=== PATIENT | male | born 1990 | race Caucasian/White ===

== ENCOUNTER 2016-09-24 21:19 | Emergency (ER) | payer BC ==
[2016-09-24 21:29] VITALS: RESP 18
[2016-09-24 22:00] LABS: Basophils # (A) 0.1 k/uL (0-0.2); Basophils % (A) 1 %; CH 30.8; CHCM 34.9; Eosinophils # (A) 0.1 k/uL (0-0.7); Eosinophils % (A) 2 %; HCT 47.9 % (39.0-53.0); HDW 2.52; HGB 16.3 gm/dL (13.0-17.5); Luc # (Auto) 0.09; Luc % (Auto) 1; Lymphocytes # (A) 1.6 k/uL (1.0-4.8); Lymphocytes % (A) 25 %; MCH 30.2 pg (25.0-35.0); MCHC 34.1 g/dL (31.0-37.0); MCV 88.4 fL (80.0-100.0); Mean Platelet Volume 7.6; Monocytes # (A) 0.3 k/uL (0-1.0); Monocytes % (A) 5 %; Neutrophils # (A) 4.3 k/uL (1.3-7.7); Neutrophils % (A) 66 %; RBC 5.42 m/uL (4.30-5.90); WBC 6.5 k/uL (3.8-10.6); WBC (Perox) 6.61
--- NOTE | 2016-09-24 22:02 | XR ---
EXAMINATION TYPE: XR chest 2V DATE OF EXAM: 09/24/2016 9:59 PM COMPARISON: NONE HISTORY: Chest pain TECHNIQUE: Frontal and lateral views of the chest are obtained. FINDINGS: Heart and mediastinum are normal. Lungs are clear. Diaphragm is normal. Bony thorax and so ft tissues appear normal. IMPRESSION: Normal chest
--- NOTE | 2016-09-24 22:03 | XR ---
EXAMINATION TYPE: XR KUB DATE OF EXAM: 09/24/2016 10:00 PM COMPARISON: NONE HISTORY: Left-sided chest pain and abdominal pain TECHNIQUE: 2 views FINDINGS: Bowel gas pattern is normal. There is no sign of intestinal obstruction or pneumoperitoneum . Fecal pattern is normal. Lung bases are clear. There are no pathologic calcifications over the kidn eys. IMPRESSION: Nonacute abdomen.
[2016-09-24 22:11] LABS: ALT 39 U/L (21-72); AST 25 U/L (17-59); Alkaline Phosphatase 91 U/L (38-126); Amylase 88 U/L (30-110); Anion Gap 11 mmol/L; Blood Urea Nitrogen 9 mg/dL (9-20); Calcium 9.6 mg/dL (8.4-10.2); Carbon Dioxide 24 mmol/L (22-30); Chloride 104 mmol/L (98-107); Glucose 112 mg/dL (74-99); Non-African American GFR(MDRD) >60 (>60 ml/min/1.73 sqM); Potassium 4.3 mmol/L (3.5-5.1); Sodium 139 mmol/L (137-145); Total Bilirubin 0.8 mg/dL (0.2-1.3); Total Protein 7.2 g/dL (6.3-8.2)
--- NOTE | 2016-09-24 22:26 | ED ---
Abdominal Pain HPI - General Chief Complaint: Abdominal Pain Stated Complaint: rib pain Time Seen by Provider: 09/24/16 21:30 Source: patient, RN notes reviewed Mode of arrival: ambulatory Limitations: no limitations - History of Present Illness Initial Comments: 26-year-old male presents emergency Department chief complaint left-sided chest , abdominal pain. Patient states that it started when he woke this morning. Patient states nothing makes it feel better or worse. Patient denies nausea, vomiting, diarrhea constipation. Patient denies any chest pain or shortness of breath. Patient states she had no trauma denies any rashes area. Patient has not taken any Tylenol Motrin today. - Related Data Home Medications Medication Instructions Recorded Confirmed Buspar(Unknown) 1 tab PO QAM 09/24/16 09/24/16 Lamictal(Unknown) 1 tab PO QAM 09/24/16 09/24/16 Prozac(Unknown) 1 cap PO QAM 09/24/16 09/24/16 Allergies Allergy/AdvReac Type Severity Reaction Status Date / Time Penicillins Allergy Rash/Hives Verified 09/24/16 21:35 Review of Systems ROS Statement: Those systems with pertinent positive or pertinent negative responses have been documented in the HPI. ROS Other: All systems not noted in ROS Statement are negative. Past Medical History Past Medical History: No Reported History History of Any Multi-Drug Resistant Organisms: None Reported Additional Past Surgical History / Comment(s): right acl, right knee arthroscopy , right meniscus tear, right knee I&D Past Psychological History: Depression Smoking Status: Never smoker Past Alcohol Use History: Occasional Past Drug Use History: None Reported General Exam Limitations: no limitations General appearance: alert, in no apparent distress Head exam: Present: atraumatic, normocephalic, normal inspection ENT exam: Present: normal exam, normal oropharynx, mucous membranes moist Neck exam: Present: normal inspection, full ROM. Absent: tenderness, meningismus, lymphadenopathy Respiratory exam: Present: normal lung sounds bilaterally, chest wall tenderness (Minimal tenderness left lower ribs). Absent: respiratory distress, wheezes, rales, rhonchi, stridor Cardiovascular Exam: Present: regular rate, normal rhythm, normal heart sounds. Absent: systolic murmur, diastolic murmur, rubs, gallop, clicks GI/Abdominal exam: Present: soft, normal bowel sounds, other (No splenomegaly appreciated). Absent: distended, tenderness, guarding, rebound, rigid Back exam: Absent: CVA tenderness (R), CVA tenderness (L) Neurological exam: Present: alert, oriented X3, CN II-XII intact Skin exam: Present: warm, dry, intact, normal color. Absent: rash Course Vital Signs 09/24/16 21:27 Temperature 98.1 F Pulse Rate 70 Respiratory 18 Rate Blood Pressure 137/63 O2 Sat by Pulse 98 Oximetry Medical Decision Making - Medical Decision Making 26-year-old male present emergency department for left rib/abdominal pain. Patient had no trauma rashes. Patient lab work, x-rays within normal limits. Pain is reproducible in between the past. This may be consistent with costochondritis. Patient will follow-up with primary care physician. We discussed taking ibuprofen for the pain - Lab Data Result diagrams: 09/24/16 21:55 09/24/16 21:55 Lab Results 09/24/16 09/24/16 09/24/16 Range/Units 21:55 21:55 21:55 WBC 6.5 (3.8-10.6) k/uL RBC 5.42 (4.30-5.90) m/uL Hgb 16.3 (13.0-17.5) gm/dL Hct 47.9 (39.0-53.0) % MCV 88.4 (80.0-100.0) fL MCH 30.2 (25.0-35.0) pg MCHC 34.1 (31.0-37.0) g/dL RDW 13.0 (11.5-15.5) % Plt Count 231 (150-450) k/uL Neutrophils % 66 % Lymphocytes % 25 % Monocytes % 5 % Eosinophils % 2 % Basophils % 1 % Neutrophils # 4.3 (1.3-7.7) k/uL Lymphocytes # 1.6 (1.0-4.8) k/uL Monocytes # 0.3 (0-1.0) k/uL Eosinophils # 0.1 (0-0.7) k/uL Basophils # 0.1 (0-0.2) k/uL Sodium 139 (137-145) mmol/L Potassium 4.3 (3.5-5.1) mmol/L Chloride 104 (98-107) mmol/L Carbon Dioxide 24 (22-30) mmol/L Anion Gap 11 mmol/L BUN 9 (9-20) mg/dL Creatinine 1.00 (0.66-1.25) mg/dL Est GFR (MDRD) Af Amer >60 (>60 ml/min/1.73 sqM) Est GFR (MDRD) Non-Af >60 (>60 ml/min/1.73 sqM) Glucose 112 H (74-99) mg/dL Calcium 9.6 (8.4-10.2) mg/dL Total Bilirubin 0.8 (0.2-1.3) mg/dL AST 25 (17-59) U/L ALT 39 (21-72) U/L Alkaline Phosphatase 91 (38-126) U/L Total Protein 7.2 (6.3-8.2) g/dL Albumin 4.4 (3.5-5.0) g/dL Amylase 88 (30-110) U/L Lipase 84 (23-300) U/L Urine Color Urine Appearance (Clear) Urine pH (5.0-8.0) Ur Specific [place] (1.001-1.035) Urine Protein (Negative) Urine Glucose (UA) (Negative) Urine Ketones (Negative) Urine Blood (Negative) Urine Nitrate (Negative) Urine Bilirubin (Negative) Urine Urobilinogen (<2.0) mg/dL Ur Leukocyte Esterase (Negative) Urine RBC (0-5) /hpf Urine WBC (0-5) /hpf Urine Mucus (None) /hpf Heterophile Antibody Negative (Negative) 09/24/16 Range/Units 22:25 WBC (3.8-10.6) k/uL RBC (4.30-5.90) m/uL Hgb (13.0-17.5) gm/dL Hct (39.0-53.0) % MCV (80.0-100.0) fL MCH (25.0-35.0) pg MCHC (31.0-37.0) g/dL RDW (11.5-15.5) % Plt Count (150-450) k/uL Neutrophils % % Lymphocytes % % Monocytes % % Eosinophils % % Basophils % % Neutrophils # (1.3-7.7) k/uL Lymphocytes # (1.0-4.8) k/uL Monocytes # (0-1.0) k/uL Eosinophils # (0-0.7) k/uL Basophils # (0-0.2) k/uL Sodium (137-145) mmol/L Potassium (3.5-5.1) mmol/L Chloride (98-107) mmol/L Carbon Dioxide (22-30) mmol/L Anion Gap mmol/L BUN (9-20) mg/dL Creatinine (0.66-1.25) mg/dL Est GFR (MDRD) Af Amer (>60 ml/min/1.73 sqM) Est GFR (MDRD) Non-Af (>60 ml/min/1.73 sqM) Glucose (74-99) mg/dL Calcium (8.4-10.2) mg/dL Total Bilirubin (0.2-1.3) mg/dL AST (17-59) U/L ALT (21-72) U/L Alkaline Phosphatase (38-126) U/L Total Protein (6.3-8.2) g/dL Albumin (3.5-5.0) g/dL Amylase (30-110) U/L Lipase (23-300) U/L Urine Color Yellow Urine Appearance Clear (Clear) Urine pH 6.5 (5.0-8.0) Ur Specific [place] 1.011 (1.001-1.035) Urine Protein Negative (Negative) Urine Glucose (UA) Negative (Negative) Urine Ketones Negative (Negative) Urine Blood Negative (Negative) Urine Nitrate Negative (Negative) Urine Bilirubin Negative (Negative) Urine Urobilinogen 2.0 (<2.0) mg/dL Ur Leukocyte Esterase Trace H (Negative) Urine RBC <1 (0-5) /hpf Urine WBC 1 (0-5) /hpf Urine Mucus Rare H (None) /hpf Heterophile Antibody (Negative) Disposition Clinical Impression: Acute costochondritis Disposition: HOME SELF-CARE Condition: Stable Instructions: Costochondritis (ED) Additional Instructions: Please return to the Emergency Department if symptoms worsen or any other concerns. Time of Disposition: 23:06
[2016-09-24 23:01] LABS: Appearance,Urine Clear (Clear); Bilirubin,Urine Negative (Negative); Glucose,Urine (UA) Negative (Negative); Ketones,Urine Negative (Negative); Leukocyte Esterase,Urine Trace (Negative); Mucus,Urine Rare /hpf; Nitrite,Urine Negative (Negative); PH, Urine 6.5 (5.0-8.0); Particle Count 1971; Protein,Urine Negative (Negative); RBC,Urine <1 /hpf (0-5); Specific Gravity,Urine 1.011 (1.001-1.035); UA Billing (MACRO vs. MICRO) MICRO; WBC,Urine 1 /hpf (0-5)
[2016-09-24 23:15] VITALS: BP 136/70; PULSE 91; TEMP 98.6
== END 2016-09-24 23:15 | disposition home or self-care (01) ==
LOC: EC 21:19
DX: M94.0 Chondrocostal junction syndrome [Tietze] (principal); F32.9 Major depressive disorder, single episode, unspecified; Z79.899 Other long term (current) drug therapy; Z88.0 Allergy status to penicillin
CPT/HCPCS: 36415; 71020; 74000; 80053; 81001; 82150; 83690; 85025; 86308; 99284

== ENCOUNTER 2016-10-01 01:24 | Emergency (ER) | payer BC ==
[2016-10-01 01:30] VITALS: TEMP 98.1
[2016-10-01] MEDS ORDERED: KETOROLAC 30 MG/ML 1 ML VIAL IVP STA (02:02)
[2016-10-01] MEDS ORDERED: MORPHINE SULFATE 2 MG/ML SYRINGE IVP ONE (02:08)
[2016-10-01] MEDS ORDERED: SODIUM CHLORIDE 0.9% 1,000 ML IV ONE (02:08)
[2016-10-01 02:12] LABS: Basophils # (A) 0.1 k/uL (0-0.2); Basophils % (A) 0 %; CH 30.8; CHCM 35.2; Eosinophils % (A) 0 %; HCT 47.4 % (39.0-53.0); HDW 2.49; HGB 15.8 gm/dL (13.0-17.5); Luc # (Auto) 0.04; Luc % (Auto) 0; Lymphocytes % (A) 6 %; MCH 29.3 pg (25.0-35.0); MCHC 33.3 g/dL (31.0-37.0); MCV 87.9 fL (80.0-100.0); Mean Platelet Volume 7.9; Monocytes # (A) 0.3 k/uL (0-1.0); Monocytes % (A) 2 %; Neutrophils # (A) 13.5 k/uL (1.3-7.7); Neutrophils % (A) 91 %; RBC 5.39 m/uL (4.30-5.90); WBC 14.8 k/uL (3.8-10.6); WBC (Perox) 15.46
[2016-10-01 02:20] LABS: ALT 32 U/L (21-72); AST 26 U/L (17-59); Alkaline Phosphatase 105 U/L (38-126); Amylase 83 U/L (30-110); Anion Gap 17 mmol/L; Blood Urea Nitrogen 10 mg/dL (9-20); Carbon Dioxide 22 mmol/L (22-30); Chloride 105 mmol/L (98-107); Glucose 126 mg/dL (74-99); Non-African American GFR(MDRD) >60 (>60 ml/min/1.73 sqM); Potassium 4.3 mmol/L (3.5-5.1); Sodium 144 mmol/L (137-145); Total Bilirubin 0.4 mg/dL (0.2-1.3); Total Protein 7.4 g/dL (6.3-8.2)
--- NOTE | 2016-10-01 02:22 | XR ---
EXAMINATION TYPE: XR KUB DATE OF EXAM: 10/01/2016 2:16 AM COMPARISON: To 117 HISTORY: Nausea and vomiting TECHNIQUE: 2 views FINDINGS: Bowel gas pattern is normal. There is no sign of intestinal obstruction or pneumoperitoneum . Fecal pattern is normal. Lung bases are clear. There are no pathologic calcifications. Bony structu res appear intact. IMPRESSION: Nonacute abdomen. No change.
[2016-10-01] MEDS ORDERED: MORPHINE SULFATE 4 MG/ML SYRINGE IVP STA (03:12)
[2016-10-01] MEDS ORDERED: PANTOPRAZOLE 40 MG/10 ML VIAL IVP STA (03:22)
[2016-10-01] MEDS ORDERED: METOCLOPRAMIDE 5 MG/ML 2 ML VIAL IVP STA (03:23)
[2016-10-01 03:32] LABS: Appearance,Urine Clear (Clear); Bacteria,Urine Occasional /hpf; Bilirubin,Urine Negative (Negative); Glucose,Urine (UA) Negative (Negative); Ketones,Urine 1+ (Negative); Leukocyte Esterase,Urine Large (Negative); Mucus,Urine Rare /hpf; Nitrite,Urine Negative (Negative); Particle Count 2627; Protein,Urine 1+ (Negative); RBC,Urine 1 /hpf (0-5); Specific Gravity,Urine 1.026 (1.001-1.035); Squamous Epithelial Cell,Urine <1 /hpf (0-4); UA Billing (MACRO vs. MICRO) MICRO; Urobilinogen,Urine <2.0 mg/dL (<2.0); WBC,Urine 4 /hpf (0-5)
[2016-10-01] MEDS ORDERED: RX INFO: IV CONTRAST WAS GIVEN 1 EACH MISC MISCELLANE PRN (03:32)
--- NOTE | 2016-10-01 03:33 | ED ---
Nausea/Vomiting/Diarrhea HPI - General Chief complaint: Nausea/Vomiting/Diarrhea Stated complaint: Vomiting Blood Time Seen by Provider: 10/01/16 02:02 Source: patient, RN notes reviewed Mode of arrival: ambulatory Limitations: no limitations - History of Present Illness Initial comments: Patient is a 26 year old male with chief complaint of vomiting for 2 hours, and patient states he has been vomiting blood. Patient states this has never happened before, denies history of reflx disease. Patient reports that he has epigastric abdominal pain. Patient reports it is dark brown blood. Patient states has no other symptoms including diarrhea, blood stools, or fever or chills. Patient denies cough and rib pain. - Related Data Home Medications Medication Instructions Recorded Confirmed Buspar(Unknown) 1 tab PO QAM 09/24/16 09/24/16 Lamictal(Unknown) 1 tab PO QAM 09/24/16 09/24/16 Prozac(Unknown) 1 cap PO QAM 09/24/16 09/24/16 Previous Rx's Medication Instructions Recorded Omeprazole 40 mg PO DAILY #20 capsule. 10/01/16 Ondansetron Odt [Zofran Odt] 4 mg PO Q8HR PRN #12 tab 10/01/16 Allergies Allergy/AdvReac Type Severity Reaction Status Date / Time Penicillins Allergy Rash/Hives Verified 10/01/16 01:30 Review of Systems ROS Statement: Those systems with pertinent positive or pertinent negative responses have been documented in the HPI. ROS Other: All systems not noted in ROS Statement are negative. Past Medical History Past Medical History: No Reported History History of Any Multi-Drug Resistant Organisms: None Reported Additional Past Surgical History / Comment(s): right acl, right knee arthroscopy , right meniscus tear, right knee I&D Past Psychological History: Anxiety, Depression Smoking Status: Never smoker Past Alcohol Use History: Occasional Past Drug Use History: None Reported General Exam - General Exam Comments Initial Comments: Well appearing 26 year old male, no acute distress. Limitations: no limitations General appearance: alert, in no apparent distress Head exam: Present: atraumatic, normocephalic, normal inspection Eye exam: Present: normal appearance, PERRL, EOMI. Absent: scleral icterus, conjunctival injection, periorbital swelling ENT exam: Present: normal exam, mucous membranes moist Neck exam: Present: normal inspection. Absent: tenderness, meningismus, lymphadenopathy Respiratory exam: Present: normal lung sounds bilaterally. Absent: respiratory distress, wheezes, rales, rhonchi, stridor Cardiovascular Exam: Present: regular rate, normal rhythm, normal heart sounds. Absent: systolic murmur, diastolic murmur, rubs, gallop, clicks GI/Abdominal exam: Present: soft, tenderness (epigastric tenderness), normal bowel sounds. Absent: distended, guarding, rebound, rigid Extremities exam: Present: normal inspection, full ROM, normal capillary refill. Absent: tenderness, pedal edema, joint swelling, calf tenderness Back exam: Present: normal inspection Neurological exam: Present: alert, oriented X3, CN II-XII intact Psychiatric exam: Present: normal affect, normal mood Skin exam: Present: warm, dry, intact, normal color. Absent: rash Course Vital Signs 10/01/16 10/01/16 10/01/16 01:28 02:30 04:36 Temperature 98.1 F Pulse Rate 89 79 77 Respiratory 18 16 16 Rate Blood Pressure 129/76 138/69 141/62 O2 Sat by Pulse 98 97 98 Oximetry Medical Decision Making - Medical Decision Making Patientis a 26 year old with 2 hours of bloody emesis. Emesis is dark coffee ground like. Patient reports this has never happened before. Patient has leukocytosis and continue dnausea despite inital dose of zofran. Patient given IV protonix, morphine, and reglan and zofran. Patient reports pain is diminshed. Ct is negative for any acute process. Patient will discharged with Omeprazole and advised to follow up with GI specialist. REturn parameters discussed. Patient also given Rx for nausea medicaiotn and note for work. - Lab Data Result diagrams: 10/01/16 01:40 10/01/16 01:40 Lab Results 10/01/16 10/01/16 10/01/16 Range/Units 01:40 01:40 03:20 WBC 14.8 H (3.8-10.6) k/uL RBC 5.39 (4.30-5.90) m/uL Hgb 15.8 (13.0-17.5) gm/dL Hct 47.4 (39.0-53.0) % MCV 87.9 (80.0-100.0) fL MCH 29.3 (25.0-35.0) pg MCHC 33.3 (31.0-37.0) g/dL RDW 13.0 (11.5-15.5) % Plt Count 256 (150-450) k/uL Neutrophils % 91 % Lymphocytes % 6 % Monocytes % 2 % Eosinophils % 0 % Basophils % 0 % Neutrophils # 13.5 H (1.3-7.7) k/uL Lymphocytes # 1.0 (1.0-4.8) k/uL Monocytes # 0.3 (0-1.0) k/uL Eosinophils # 0.0 (0-0.7) k/uL Basophils # 0.1 (0-0.2) k/uL Sodium 144 (137-145) mmol/L Potassium 4.3 (3.5-5.1) mmol/L Chloride 105 (98-107) mmol/L Carbon Dioxide 22 (22-30) mmol/L Anion Gap 17 mmol/L BUN 10 (9-20) mg/dL Creatinine 1.00 (0.66-1.25) mg/dL Est GFR (MDRD) Af Amer >60 (>60 ml/min/1.73 sqM) Est GFR (MDRD) Non-Af >60 (>60 ml/min/1.73 sqM) Glucose 126 H (74-99) mg/dL Calcium 10.0 (8.4-10.2) mg/dL Total Bilirubin 0.4 (0.2-1.3) mg/dL AST 26 (17-59) U/L ALT 32 (21-72) U/L Alkaline Phosphatase 105 (38-126) U/L Total Protein 7.4 (6.3-8.2) g/dL Albumin 4.6 (3.5-5.0) g/dL Amylase 83 (30-110) U/L Lipase 70 (23-300) U/L Urine Color Yellow Urine Appearance Clear (Clear) Urine pH 8.0 (5.0-8.0) Ur Specific [place] 1.026 (1.001-1.035) Urine Protein 1+ H (Negative) Urine Glucose (UA) Negative (Negative) Urine Ketones 1+ H (Negative) Urine Blood Negative (Negative) Urine Nitrate Negative (Negative) Urine Bilirubin Negative (Negative) Urine Urobilinogen <2.0 (<2.0) mg/dL Ur Leukocyte Esterase Large H (Negative) Urine RBC 1 (0-5) /hpf Urine WBC 4 (0-5) /hpf Ur Squamous Epith Cells <1 (0-4) /hpf Urine Bacteria Occasional H (None) /hpf Urine Mucus Rare H (None) /hpf - Radiology Data Radiology results: report reviewed Negative CT abdomen and pelvis. Disposition Clinical Impression: Bloody emesis, Vomiting Disposition: HOME SELF-CARE Condition: Good Instructions: Acute Nausea and Vomiting (ED) Additional Instructions: Patient advised to follow-up with GI specialist in 2 days. Continue nausea medication and take omeprazole once a day for the next month. Return to the [facility] if any alarming signs or symptoms occur. Follow-up with primary care provider within the next week. Prescriptions: Omeprazole 40 mg PO DAILY #20 capsule. Ondansetron Odt [Zofran Odt] 4 mg PO Q8HR PRN #12 tab PRN Reason: Nausea Referrals: Tanner Snider MD [Primary Care Provider] - 1-2 days Sadiq Gaffney MD [STAFF PHYSICIAN] - 1-2 days Time of Disposition: 04:36
[2016-10-01 04:36] VITALS: RESP 16
[2016-10-01 04:37] VITALS: BP 141/62; PULSE 77
--- NOTE | 2016-10-01 04:56 | CT ---
EXAMINATION TYPE: CT abdomen pelvis w con DATE OF EXAM: 10/01/2016 4:07 AM COMPARISON: NONE HISTORY: N/V/D CT DLP: 1437 mGycm Automated exposure control for dose reduction was used. TECHNIQUE: Helical acquisition of images was performed from the lung bases through the pelvis. CONTRAST: Performed without Oral Contrast and with IV Contrast, patient injected with 100 mL of Omnipaque 300. FINDINGS: Lung bases are clear. There is no pleural effusion. Heart size is normal. Liver spleen pancreas gallbladder appear normal. Bile ducts are nondilated. There is no adrenal mass. Kidneys show satisfactory contrast opacification. There is no hydronephrosis. There is no retroperit carter adenopathy. There is no ascites. I see no intestinal wall thickening. There are no dilated loop s. Bladder distends smoothly. There is no sign of a pelvic mass. Appendix is not seen. There is no si gn of appendicitis. IMPRESSION: NEGATIVE CT SCAN OF THE ABDOMEN AND PELVIS.
== END 2016-10-01 05:13 | disposition home or self-care (01) ==
LOC: EC 01:24
DX: K92.0 Hematemesis (principal); R10.13 Epigastric pain; D72.829 Elevated white blood cell count, unspecified; F41.8 Other specified anxiety disorders; Z79.899 Other long term (current) drug therapy; Z88.0 Allergy status to penicillin
CPT/HCPCS: 99284; 36415; 80053; 82150; 83690; 85025; 81001; 74000; 74177; 96374; 96375 ×2; 96376; 96361; J2270 ×2; J2765; Q9967; C9113

== ENCOUNTER 2016-12-13 22:24 | Emergency (ER) | payer BC ==
--- NOTE | 2016-12-13 22:50 | ED ---
General Adult HPI - General Chief complaint: Psychiatric Symptoms Stated complaint: Mental Health-Petition Time Seen by Provider: 12/13/16 22:35 Source: patient, police, RN notes reviewed Mode of arrival: ambulatory Limitations: no limitations - History of Present Illness Initial comments: This is a 26-year-old male who presents to the emergency department stating that he is brought here because he made some Facebook messages stating he was suicidal. The assurance specialist found out somehow and went and talked with him and brought him into the emergency department. Patient states he is not truly suicidal but he does admit that he wrote that he was suicidal both on Facebook and had a text messaged somewhat. Patient states he did attempt suicide 3 years ago but he states he has nowhere near that point now. Patient states he is under quite a bit of stress because his had a new job is working really hard. Patient denies any physical complaints today. Patient denies a fever or chills. Patient denies headache patient denies numbness weakness. Patient denies chest pain palpitations difficulty breathing or shortness of breath. Patient denies abdominal pain patient denies nausea vomiting or diarrhea. Patient denies suicidal or homicidal ideations. Patient denies any hallucinations or delusions. - Related Data Home Medications Medication Instructions Recorded Confirmed Buspar(Unknown) 1 tab PO QAM 09/24/16 12/13/16 Lamictal(Unknown) 1 tab PO QAM 09/24/16 12/13/16 Prozac(Unknown) 1 cap PO QAM 09/24/16 12/13/16 Previous Rx's Medication Instructions Recorded Omeprazole 40 mg PO DAILY #20 capsule. 10/01/16 Allergies Allergy/AdvReac Type Severity Reaction Status Date / Time Penicillins Allergy Rash/Hives Verified 12/13/16 22:34 Review of Systems ROS Statement: Those systems with pertinent positive or pertinent negative responses have been documented in the HPI. ROS Other: All systems not noted in ROS Statement are negative. Past Medical History Past Medical History: No Reported History History of Any Multi-Drug Resistant Organisms: None Reported Additional Past Surgical History / Comment(s): right acl, right knee arthroscopy , right meniscus tear, right knee I&D Past Psychological History: Anxiety, Depression Smoking Status: Never smoker Past Alcohol Use History: Occasional Past Drug Use History: None Reported General Exam - General Exam Comments Initial Comments: GENERAL: Patient is well-developed and well-nourished. Patient is nontoxic and well- hydrated and is in no acute distress. ENT: Neck is soft and supple. No significant lymphadenopathy is noted. Oropharynx is clear. Moist mucous membranes. Neck has full range of motion without eliciting any pain. EYES: The sclera were anicteric and conjunctiva were pink and moist. Extraocular movements were intact and pupils were equal round and reactive to light. Eyelids were unremarkable. PULMONARY: Unlabored respirations. Good breath sounds bilaterally. No audible rales rhonchi or wheezing was noted. CARDIOVASCULAR: There is a regular rate and rhythm without any murmurs gallops or rubs. ABDOMEN: Soft and nontender with normal bowel sounds. No palpable organomegaly was noted. There is no palpable pulsatile mass. SKIN: Skin is clear with no lesions or rashes and otherwise unremarkable. NEUROLOGIC: Patient is alert and oriented x3. Cranial nerves II through XII are grossly intact. Motor and sensory are also intact. Normal speech, volume and content. Symmetrical smile. MUSCULOSKELETAL: Normal extremities with adequate strength and full range of motion. No lower extremity swelling or edema. No calf tenderness. LYMPHATICS: No significant lymphadenopathy is noted PSYCHIATRIC: Patient denies suicidal or homicidal ideations. Patient is mildly anxious Limitations: no limitations Course Vital Signs 12/13/16 22:35 Temperature 98.2 F Pulse Rate 100 Respiratory 20 Rate Blood Pressure 158/85 O2 Sat by Pulse 100 Oximetry Medical Decision Making - Medical Decision Making EPS evaluated the patient spoke with the patient's psychiatrist and they thought the patient would be able to go home and be safe. Mother was contacted mother agrees mother will come and picker tender helper the patient. - Lab Data Lab Results 12/13/16 Range/Units 23:02 Urine Opiates Screen Not Detected (NotDetected) Ur Oxycodone Screen Not Detected (NotDetected) Urine Methadone Screen Not Detected (NotDetected) Ur Propoxyphene Screen Not Detected (NotDetected) Ur Barbiturates Screen Not Detected (NotDetected) U Tricyclic Antidepress Not Detected (NotDetected) Ur Phencyclidine Scrn Not Detected (NotDetected) Ur Amphetamines Screen Not Detected (NotDetected) U Methamphetamines Scrn Not Detected (NotDetected) U Benzodiazepines Scrn Detected H (NotDetected) Urine Cocaine Screen Not Detected (NotDetected) U Marijuana (THC) Screen Not Detected (NotDetected) Disposition Clinical Impression: Adjustment reaction Disposition: HOME SELF-CARE Condition: Good Instructions: Stress (ED) Referrals: Tanner Snider MD [Primary Care Provider] - 1-2 days Time of Disposition: 00:54
[2016-12-14] MEDS ORDERED: LORazepam 1 MG TAB PO STA (00:03)
[2016-12-14 01:20] VITALS: BP 152/87; PULSE 91; RESP 18; TEMP 97.6
== END 2016-12-14 01:19 | disposition home or self-care (01) ==
LOC: EC 22:24
DX: F43.20 Adjustment disorder, unspecified (principal); F41.9 Anxiety disorder, unspecified; F32.9 Major depressive disorder, single episode, unspecified; Z88.0 Allergy status to penicillin; Z79.899 Other long term (current) drug therapy
CPT/HCPCS: 80306; 82075; 99284

== ENCOUNTER 2017-09-03 18:52 | Emergency (ER) | payer BC, OTHER ==
[2017-09-03 19:01] VITALS: BP 131/68; PULSE 88; RESP 18; TEMP 98.3
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
[2017-09-03] MEDS ORDERED: ORPHENADRINE 30 MG/ML 2 ML VIAL IM STA (20:02)
[2017-09-03] MEDS ORDERED: KETOROLAC 60 MG/2 ML VIAL IM STA (20:02)
--- NOTE | 2017-09-03 20:18 | XR ---
EXAMINATION TYPE: XR shoulder complete LT , 3 VIEWS DATE OF EXAM ORDERED: 09/03/2017 HISTORY: Pain. COMPARISON: None. FINDINGS: No fracture, dislocation or other acute osseous lesion is seen. IMPRESSION: NORMAL LEFT SHOULDER.
== END 2017-09-03 20:24 | disposition home or self-care (01) ==
LOC: EC 18:52
DX: S06.0X0A Concussion without loss of consciousness, initial encounter (principal); S40.012A Contusion of left shoulder, initial encounter; S00.81XA Abrasion of other part of head, initial encounter; F32.9 Major depressive disorder, single episode, unspecified; F41.9 Anxiety disorder, unspecified; Z79.899 Other long term (current) drug therapy; Z88.0 Allergy status to penicillin; Z53.20 Procedure and treatment not carried out because of patient's decision for unspecified reasons; V49.49XA Driver injured in collision with other motor vehicles in traffic accident, initial encounter; Y92.410 Unspecified street and highway as the place of occurrence of the external cause
CPT/HCPCS: 70450; 72125; 99284

== ENCOUNTER 2017-10-27 23:48 | Emergency (ER) | payer OTHER ==
[2017-10-27 23:55] VITALS: RESP 18
--- NOTE | 2017-10-28 00:26 | ED ---
Psych HPI - General Chief Complaint: Psychiatric Symptoms Stated Complaint: Mental Health Time Seen by Provider: 10/27/17 23:57 Source: patient Mode of arrival: ambulatory - History of Present Illness Initial Comments: This patient is a 27-year-old man with history of mood disorder, he is here to have psychiatric evaluation. The patient states that his relationship with his girlfriend ended and he made some statements to the effect that he felt like he did not want to live any longer. He states that his parents interpreted this as being actively suicidal, which he currently denies. He does admit to feeling somewhat anxious about the end of the relationship, but he does currently contract for safety. He states that he is compliant with his psychiatric medications. MD Complaint: suicidal ideation -: hour(s) Associated Psychiatric Symptoms: depression History of same: Yes Quality: resolved prior to arrival Improves With: none Worsens With: none Context: significant life stressor Associated Symptoms: denies other symptoms - Related Data Home Medications Medication Instructions Recorded Confirmed ARIPiprazole [Abilify] 5 mg PO DAILY 09/03/17 09/03/17 FLUoxetine HCL [PROzac] 40 mg PO DAILY 09/03/17 09/03/17 busPIRone HCL [Buspar] 30 mg PO DAILY 09/03/17 09/03/17 lamoTRIgine [LaMICtal] 200 mg PO DAILY 09/03/17 09/03/17 Allergies Allergy/AdvReac Type Severity Reaction Status Date / Time Penicillins Allergy Rash/Hives Verified 10/27/17 23:55 Review of Systems ROS Statement: Those systems with pertinent positive or pertinent negative responses have been documented in the HPI. ROS Other: All systems not noted in ROS Statement are negative. Constitutional: Denies: fever, chills Respiratory: Denies: cough, dyspnea Cardiovascular: Denies: chest pain, palpitations Gastrointestinal: Denies: abdominal pain, vomiting, diarrhea Neurological: Denies: headache Psychiatric: Reports: as per HPI, anxiety, depression. Denies: auditory hallucinations, visual hallucinations, homicidal thoughts, suicidal thoughts Past Medical History Past Medical History: No Reported History History of Any Multi-Drug Resistant Organisms: None Reported Additional Past Surgical History / Comment(s): right acl, right knee arthroscopy , right meniscus tear, right knee I&D Past Psychological History: Anxiety, Depression Smoking Status: Never smoker Past Alcohol Use History: Occasional Past Drug Use History: None Reported General Exam Limitations: no limitations General appearance: alert, in no apparent distress Head exam: Present: atraumatic, normocephalic Eye exam: Present: normal appearance. Absent: scleral icterus, conjunctival injection ENT exam: Present: normal oropharynx Neck exam: Present: normal inspection Respiratory exam: Present: normal lung sounds bilaterally. Absent: respiratory distress, wheezes, rales, rhonchi, stridor Cardiovascular Exam: Present: regular rate, normal rhythm, normal heart sounds. Absent: systolic murmur, diastolic murmur, rubs, gallop GI/Abdominal exam: Present: soft. Absent: distended, tenderness, guarding, rebound Back exam: Present: normal inspection. Absent: CVA tenderness (R), CVA tenderness (L) Neurological exam: Present: alert, oriented X3, normal gait Psychiatric exam: Present: normal affect, normal mood. Absent: depressed, agitated, flat affect, manic, homicidal ideation, suicidal ideation Skin exam: Present: warm, dry, intact, normal color. Absent: rash Course Vital Signs 10/27/17 23:52 Temperature 97.9 F Pulse Rate 84 Respiratory 18 Rate Blood Pressure 125/77 O2 Sat by Pulse 97 Oximetry Disposition Clinical Impression: Adjustment reaction Disposition: HOME SELF-CARE Condition: Good Instructions: Mood Disorders (ED) Referrals: Tanner Snider MD [Primary Care Provider] - 1-2 days
[2017-10-28 01:39] VITALS: BP 146/77; PULSE 68; TEMP 97
== END 2017-10-28 01:38 | disposition home or self-care (01) ==
LOC: EC 23:48
DX: F43.23 Adjustment disorder with mixed anxiety and depressed mood (principal); Z79.899 Other long term (current) drug therapy; Z88.0 Allergy status to penicillin
CPT/HCPCS: 82075; 99284

== ENCOUNTER → 2020-02-07 | Outpatient (CLI) | payer OTHER ==
--- NOTE | 2020-02-07 09:01 | CT ---
EXAMINATION TYPE: CT abdomen pelvis wo con DATE OF EXAM: 02/07/2020 COMPARISON: 10/01/2016 INDICATION: Renal colic, right flank pain, dysuria DLP: 1173.5 mGycm, Automated exposure control for dose reduction was used. CONTRAST: 0 mL of Isovue 300. Study performed without Oral Contrast TECHNIQUE: Axial images were obtained from above the diaphragm to the pubic rami in the axial plane a t 5 mm thick sections. Reconstructed images are reviewed on the computer in the coronal plane. FINDINGS: Limited CT sections are obtained the lung bases. The lung bases are clear. CT ABDOMEN: Liver: Normal Spleen: Normal Pancreas: Normal Adrenal glands: The adrenal glands are normal. Gallbladder: Normal Kidneys: No masses are evident. No hydronephrosis is present. No cysts are present. Delayed images were obtained through the kidneys, which remain unremarkable. Aorta: Vascular calcification is within the aorta. Inferior vena cava: Normal. CT PELVIS: Scattered diverticuli within the colon. No acute diverticulitis is evident. Study is without oral con trast limiting bowel evaluation. Appendix: Normal as visualized. Urinary bladder: Decompressed limiting evaluation. Genitourinary structures: Prostate is normal. Osseous structures: No suspicious lytic or sclerotic lesions. Spondylolysis of L5 is evident. Spina b ifida occulta of L5 is also present. IMPRESSIONS: 1. Diverticulosis without acute diverticulitis. 2. No suspicious renal stones. No hydronephrosis or hydroureter is evident.
== END | disposition home or self-care (01) ==
LOC: RADCTMAIN 07:37
PROVIDERS: ATTEND Urology
DX: K57.90 Diverticulosis of intestine, part unspecified, without perforation or abscess without bleeding (principal); Z88.0 Allergy status to penicillin
CPT/HCPCS: 74176

== ENCOUNTER → 2020-06-08 | Outpatient (CLI) | payer OTHER ==
--- NOTE | 2020-06-08 14:21 | XR ---
EXAMINATION TYPE: XR chest 2V DATE OF EXAM: 06/08/2020 COMPARISON: None INDICATION: Costochondral junction syndrome TECHNIQUE: Frontal and lateral views of the chest are obtained. FINDINGS: The heart size is normal. The pulmonary vasculature is normal. The lungs are clear. No pneumothorax is evident. No displaced rib fractures are evident. IMPRESSION: 1. No acute pulmonary process.
--- NOTE | 2020-06-08 14:22 | XR ---
EXAMINATION TYPE: XR ribs LT DATE OF EXAM: 06/08/2020 COMPARISON: 06/08/2020 HISTORY: Recent renal stent removal pain on left side TECHNIQUE: Left ribs are examined in 2 projections FINDINGS: No acute displaced fractures evident. No joint effusions are evident. Follow-up exams can be performed 7-10 days from acute trauma for continued pain. IMPRESSION: 1. Normal two-view left RIBS
== END | disposition home or self-care (01) ==
LOC: RADXRMAIN 10:39
PROVIDERS: ATTEND Family Medicine
DX: M94.0 Chondrocostal junction syndrome [Tietze] (principal)
CPT/HCPCS: 71046

== ENCOUNTER → 2021-12-24 | Outpatient (CLI) | payer OTHER ==
--- NOTE | 2021-12-24 16:27 | CT ---
EXAMINATION TYPE: CT abdomen pelvis wo con DATE OF EXAM: 12/24/2021 COMPARISON: 02/07/2020 HISTORY: h/o renal stone, flank pain and hematuria CT DLP: 893.2 mGycm Automated exposure control for dose reduction was used. TECHNIQUE: Helical acquisition of images was performed from the lung bases through the pelvis. FINDINGS: LUNG BASES: No significant abnormality is appreciated. LIVER/GB: No significant abnormality is appreciated. PANCREAS: No significant abnormality is seen. SPLEEN: No significant abnormality is seen. ADRENALS: No significant abnormality is seen. KIDNEYS: No significant abnormality is seen. ADENOPATHY: None visualized. OSSEOUS STRUCTURES: Bilateral spondylolysis L5 with grade 1 anterolisthesis. BOWEL: No significant abnormality is seen. OTHER: Aorta of normal caliber. Tiny fat-containing periumbilical hernia. IMPRESSION: NO HYDRONEPHROSIS OR NEPHROLITHIASIS. BILATERAL SPONDYLOLYSIS WITH GRADE 1 ANTEROLISTHESIS L5 ON S1.
== END | disposition home or self-care (01) ==
LOC: RADCTMAIN 15:43
PROVIDERS: ATTEND Family Medicine
DX: R10.9 Unspecified abdominal pain (principal); R31.9 Hematuria, unspecified; Z87.442 Personal history of urinary calculi; M43.17 Spondylolisthesis, lumbosacral region
CPT/HCPCS: 74176